=== PATIENT | female | born 1935 | race Hispanic/Latino ===

== ENCOUNTER → 2017-12-27 | Outpatient (CLI) | payer MEDICARE ==
[~2017-12-27] MED LIST: ASPI-1012 PO; DILT240C3 PO; FERR324T10 PO; HYDR-2132 PO; IRON1CAP32 PO; MIRAUD PO; PHEN64.8 PO; TRAM50TA4 PO; TRIA1CAP6 PO
== END | disposition home or self-care (01) ==
LOC: EDSTATUS 09:00 → SHCH 09:25
PROVIDERS: ATTEND Internal Medicine Cardiovascular Disease
DX: I35.1 Nonrheumatic aortic (valve) insufficiency (principal); I10 Essential (primary) hypertension
CPT/HCPCS: 93306

== ENCOUNTER 2018-01-05 15:30 | Inpatient (IN) | payer MEDICARE ==
[~2018-01-05] VITALS: Ht 160 cm; Wt 56.2 kg
[2018-01-05 16:10] VITALS: BP 129/65
[2018-01-05 16:27] LABS: BASOPHILS % (AUTO) 0.6 % (0.0-5.0); EOSINOPHILS % (AUTO) 2.2 % (0.0-8.0); HEMATOCRIT 32.5 % (36-48); LYMPHOCYTES % (AUTO) 15.1 % (21.0-51.0); MEAN CORPUSCULAR HEMOGLOBIN 26.4 pg (27.0-33.0); MEAN CORPUSCULAR HGB CONC 33.4 g/dL (32.0-36.0); MONOCYTES % (AUTO) 6.1 % (3.0-13.0); PLATELET COUNT (AUTO) 238 K/uL (130-400); RED BLOOD CELL COUNT(AUTO) 4.12 MIL/uL (4.00-5.50); RED CELL DISTRIBUTION WIDTH 17.6 % (11.0-15.5); WHITE BLOOD COUNT (AUTO) 4.7 K/uL (4.8-10.8)
[2018-01-05 16:32] LABS: BILIRUBIN,URINE Negative (NEGATIVE); COLOR,URINE Dark Yellow (YELLOW); GLUCOSE, URINE (UA) Negative (NEGATIVE); KETONES,URINE Negative (NEGATIVE); LEUKOCYTE ESTERASE ,URINE Small (NEGATIVE); NITRATE,URINE Positive (NEGATIVE); OCCULT BLOOD,URINE Negative (NEGATIVE); PH,URINE 6.5 (5.0-8.0); PROTEIN,URINE Negative (NEGATIVE)
[2018-01-05 16:33] LABS: CREATININE 1.1 mg/dL (0.5-1.5); POTASSIUM 4.6 mmol/L (3.5-5.1)
[2018-01-05 16:35] LABS: INR 1.02 (0.85-1.15); PARTIAL THROMBOPLASTIN TIME 27.5 SEC (26.3-35.5); PROTHROMBIN TIME 10.7 SEC (9.6-11.6)
[2018-01-05 16:36] LABS: APPEARANCE,URINE SLIGHTLY CLOUDY (CLEAR)
[2018-01-05 16:45] LABS: BACTERIA,URINE Moderate /HPF (None Seen); RBC,URINE 0-1 /HPF (0-1); YEAST,URINE BUDDING Rare /HPF (None Seen)
[2018-01-05 16:46] LABS: AMORPHOUS SEDIMENT,UR Rare /LPF (None Seen); COARSE GRANULAR CASTS,URINE 0-2 /LPF (None Seen); SQUAMOUS EPITHELIAL CELL,UR Rare /HPF (0-2)
[2018-01-05] MEDS ORDERED: PHEN64.8 PO (17:44)
[2018-01-05] MEDS ORDERED: TRIA1CAP6 PO (17:44)
[2018-01-05] MEDS ORDERED: IRON1CAP32 PO (17:44)
[2018-01-05] MEDS ORDERED: DILT240C3 PO (17:44)
[2018-01-08] VITALS (20 sets, daily range): BP systolic 109–140; BP diastolic 49–67
[2018-01-08] MEDS: CEFAZOLIN SODIUM 1 GM VIAL IVP SCH ×2 (06:00→16:30)
[2018-01-08] MEDS ORDERED: PROPOFOL 10 MG/ML 20ML VIAL IV ONE ×2 (12:59→16:17)
[2018-01-08] MEDS ORDERED: GLYCOPYRROLATE 0.2 MG/ML 5 ML VIAL ONE (12:59)
[2018-01-08] MEDS ORDERED: LIDOCAINE PF 2% 5ML ABBOJECT ONE (12:59)
[2018-01-08] MEDS ORDERED: DEXAMETHASONE SOD PHOSPHATE 10MG/ML 1ML VIAL ONE (12:59)
[2018-01-08] MEDS ORDERED: MIDAZOLAM HCL 1 MG/ML 2ML VIAL ONE (12:59)
[2018-01-08] MEDS ORDERED: FENTANYL CITRATE PF 50 MCG/1 ML 2ML VIAL ONE ×2 (13:00→20:15)
[2018-01-08] MEDS ORDERED: GENTAMICIN SULFATE 240 MG in SODIUM CHLORIDE 0.9% 100 ML IV SCH (13:30)
[2018-01-08] MEDS ORDERED: LACTATED RINGERS 1000ML 1,000 ML IV ONE (13:44)
[2018-01-08] MEDS ORDERED: BUPIVACAINE/EPI/PF 0.25% 30ML VIAL IJ ONE (13:52)
[2018-01-08] MEDS ORDERED: CEFAZOLIN SODIUM 1 GM VIAL ONE ×2 (13:52→18:32)
[2018-01-08] MEDS ORDERED: TRANEXAMIC ACID 1000MG/10ML IV ONE ×2 (13:52→20:58)
[2018-01-08] MEDS ORDERED: EPHEDRINE SULFATE 50 MG/ML AMPULE ONE (17:15)
[2018-01-08] MEDS ORDERED: VANCOMYCIN HCL 1 GM VIAL ONE (19:17)
[2018-01-08] MEDS ORDERED: TEMAZEPAM 15 MG CAPSULE PO PRN (20:15)
[2018-01-08] MEDS ORDERED: HYDROCODONE/ACETAMINOPHEN 5/325 MG TAB PO PRN ×2 (20:15)
[2018-01-08] MEDS ORDERED: POTASSIUM CHLORIDE 20 MEQ ERTAB PO PRN (20:15)
[2018-01-08] MEDS ORDERED: LIDOCAINE HCL-MPF 1% 2ML VIAL IVP PRN (20:15)
[2018-01-08] MEDS ORDERED: DiphenhydrAMINE HCL 50 MG/ML VIAL IVP PRN (20:15)
[2018-01-08] MEDS ORDERED: POTASSIUM CHLORIDE 10% ELIXIR 20 MEQ/15 ML UDCUP PO PRN (20:15)
[2018-01-08] MEDS ORDERED: CALCIUM CARBONATE 500 MG TABLET PO PRN (20:15)
[2018-01-08] MEDS ORDERED: PROMETHAZINE HCL 25 MG/ML 1ML AMPULE IM PRN (20:15)
[2018-01-08] MEDS ORDERED: POTASSIUM CHLORIDE 20MEQ/100ML 100 ML IV PRN (20:15)
[2018-01-08] MEDS ORDERED: DIPHENHYDRAMINE HCL 25 MG CAPSULE PO PRN (20:15)
[2018-01-08] MEDS ORDERED: ONDANSETRON HCL MDV 20ML 2 MG/ML VIAL ONE (21:12)
[2018-01-08] MEDS: SODIUM CHLORIDE 0.9% 1000ML 1,000 ML IV SCH (22:19)
[2018-01-08] MEDS: KETOROLAC TROMETHAMINE 15MG/ML IV PRN (23:25)
[2018-01-08] MEDS: FAMOTIDINE 20MG TAB 20 MG TAB PO SCH (23:27)
[2018-01-08] MEDS: CELECOXIB 200 MG CAP PO SCH (23:27)
[2018-01-08] MEDS: ASPIRIN 325 MG TABLET PO SCH (23:27)
[2018-01-09] VITALS (7 sets, daily range): BP systolic 92–139; BP diastolic 44–65
[2018-01-09] MEDS: CEFAZOLIN SODIUM 1 GM VIAL IVP SCH ×2 (00:36→09:15)
[2018-01-09] MEDS ORDERED: CEFAZOLIN 2GM / 50 ML 50 ML IV SCH (01:15)
[2018-01-09 05:27] LABS: HEMATOCRIT 28.1 % (36-48); MEAN CORPUSCULAR HEMOGLOBIN 26.8 pg (27.0-33.0); MEAN CORPUSCULAR HGB CONC 33.3 g/dL (32.0-36.0); MEAN CORPUSCULAR VOLUME 80.4 fL (79-99); PLATELET COUNT (AUTO) 212 K/uL (130-400); RED CELL DISTRIBUTION WIDTH 19.8 % (11.0-15.5); WHITE BLOOD COUNT (AUTO) 16.4 K/uL (4.8-10.8)
[2018-01-09 05:37] LABS: CREATININE 0.8 mg/dL (0.5-1.5); POTASSIUM 4.1 mmol/L (3.5-5.1)
[2018-01-09] MEDS: SODIUM CHLORIDE 0.9% 1000ML 1,000 ML IV SCH ×2 (06:26→16:13)
[2018-01-09] MEDS: CELECOXIB 200 MG CAP PO SCH ×2 (08:36→19:34)
[2018-01-09] MEDS: FAMOTIDINE 20MG TAB 20 MG TAB PO SCH ×2 (08:36→21:24)
[2018-01-09] MEDS: POLYETHYLENE GLYCOL 3350 17 GM POWD.PACK PO SCH (08:36)
[2018-01-09] MEDS: ASPIRIN 325 MG TABLET PO SCH ×2 (08:36→19:34)
[2018-01-09] MEDS: TRAMADOL HCL 50 MG TABLET PO PRN ×2 (08:36→17:37)
[2018-01-09] MEDS: PSYLLIUM SEED 1 EACH PACKET PO SCH (12:00)
[2018-01-09] MEDS ORDERED: PHARMACY COMMUNICATION MISC SCH (14:15)
[2018-01-09] MEDS ORDERED: COMPOUND IV REFRIGERATED 1 EACH IVSOLN MISC PRN (14:30)
[2018-01-09] MEDS ORDERED: GENTAMICIN SULFATE 240 MG in SODIUM CHLORIDE 0.9% 100 ML IV ONE (15:30)
[2018-01-09] MEDS: PHENOBARBITAL 64.8 MG PO SCH (19:35)
[2018-01-10 00:25] VITALS: BP 123/59
[2018-01-10 04:00] VITALS: BP 137/67
[2018-01-10 05:53] LABS: HEMATOCRIT 23.7 % (36-48); MEAN CORPUSCULAR HEMOGLOBIN 26.6 pg (27.0-33.0); MEAN CORPUSCULAR HGB CONC 32.6 g/dL (32.0-36.0); MEAN CORPUSCULAR VOLUME 81.7 fL (79-99); PLATELET COUNT (AUTO) 123 K/uL (130-400); RED BLOOD CELL COUNT(AUTO) 2.91 MIL/uL (4.00-5.50); RED CELL DISTRIBUTION WIDTH 19.6 % (11.0-15.5); WHITE BLOOD COUNT (AUTO) 6.6 K/uL (4.8-10.8)
[2018-01-10 06:02] LABS: CREATININE 0.6 mg/dL (0.5-1.5); POTASSIUM 4.3 mmol/L (3.5-5.1)
[2018-01-10] MEDS: KETOROLAC TROMETHAMINE 15MG/ML IV PRN ×2 (06:34→20:03)
[2018-01-10 08:00] VITALS: BP 147/69
[2018-01-10] MEDS: ASPIRIN 325 MG TABLET PO SCH ×2 (08:16→19:57)
[2018-01-10] MEDS: CELECOXIB 200 MG CAP PO SCH ×2 (08:17→19:57)
[2018-01-10] MEDS: POLYETHYLENE GLYCOL 3350 17 GM POWD.PACK PO SCH (08:17)
[2018-01-10] MEDS: PHENOBARBITAL 64.8 MG PO SCH ×2 (08:17→20:02)
[2018-01-10] MEDS: FAMOTIDINE 20MG TAB 20 MG TAB PO SCH ×2 (08:17→19:57)
[2018-01-10] MEDS: FERROUS FUMARATE 324 MG TABLET PO PRN (08:18)
[2018-01-10] MEDS: TRIAMTERENE/HYDROCHLOROTHIAZIDE 37.5/25 MG CAP PO SCH (08:20)
[2018-01-10] MEDS: DILTIAZEM HCL 120 MG CAP.SR.24H PO SCH (08:21)
[2018-01-10] MEDS: PSYLLIUM SEED 1 EACH PACKET PO SCH (12:42)
[2018-01-10 16:00] VITALS: BP 108/42
[2018-01-10 19:57] VITALS: BP 116/58
[2018-01-10] MEDS ORDERED: BISACODYL 5 MG TABLET.DR PO PRN (20:15)
[2018-01-10] MEDS: TRAMADOL HCL 50 MG TABLET PO PRN (21:18)
[2018-01-10 23:50] VITALS: BP 115/56
[2018-01-11 04:39] VITALS: BP 120/57
[2018-01-11 05:52] LABS: CREATININE 0.7 mg/dL (0.5-1.5); POTASSIUM 4.6 mmol/L (3.5-5.1)
[2018-01-11 05:55] LABS: HEMATOCRIT 21.7 % (36-48); MEAN CORPUSCULAR HEMOGLOBIN 26.4 pg (27.0-33.0); MEAN CORPUSCULAR HGB CONC 33.2 g/dL (32.0-36.0); MEAN CORPUSCULAR VOLUME 79.5 fL (79-99); PLATELET COUNT (AUTO) 142 K/uL (130-400); RED BLOOD CELL COUNT(AUTO) 2.73 MIL/uL (4.00-5.50); RED CELL DISTRIBUTION WIDTH 19.7 % (11.0-15.5); WHITE BLOOD COUNT (AUTO) 4.4 K/uL (4.8-10.8)
[2018-01-11] MEDS: CELECOXIB 200 MG CAP PO SCH (07:40)
[2018-01-11] MEDS: ASPIRIN 325 MG TABLET PO SCH (07:40)
[2018-01-11] MEDS: FERROUS FUMARATE 324 MG TABLET PO PRN (07:40)
[2018-01-11] MEDS: PHENOBARBITAL 64.8 MG PO SCH (07:41)
[2018-01-11] MEDS: FAMOTIDINE 20MG TAB 20 MG TAB PO SCH (07:41)
[2018-01-11] MEDS: DILTIAZEM HCL 120 MG CAP.SR.24H PO SCH (07:44)
[2018-01-11 08:06] VITALS: BP 111/61
[2018-01-11] MEDS ORDERED: HYDR-2132 PO (08:09)
[2018-01-11] MEDS ORDERED: TRAM50TA4 PO (08:09)
[2018-01-11] MEDS ORDERED: MIRAUD PO (08:09)
[2018-01-11] MEDS ORDERED: FERR324T10 PO (08:09)
[2018-01-11] MEDS ORDERED: ASPI-1012 PO (08:09)
[2018-01-11] MEDS: TRIAMTERENE/HYDROCHLOROTHIAZIDE 37.5/25 MG CAP PO SCH (08:30)
[2018-01-11] MEDS: POLYETHYLENE GLYCOL 3350 17 GM POWD.PACK PO SCH (08:30)
[2018-01-11] MEDS: TRAMADOL HCL 50 MG TABLET PO PRN (08:33)
[2018-01-11] MEDS ORDERED: SODIUM CHLORIDE 0.9% 250 ML IV ONE (08:54)
[2018-01-11 11:07] VITALS: BP 108/53
[2018-01-11] MEDS: PSYLLIUM SEED 1 EACH PACKET PO SCH (12:33)
[2018-01-11] MEDS ORDERED: BISACODYL 10 MG SUPP.RECT RC PRN (20:15)
== END 2018-01-11 18:56 | DRG 468 ==
LOC: EDSTATUS 15:30 → DAHIP 01-08 12:54 → 4AH 01-08 23:49
PROVIDERS: ADMIT Orthopaedic Surgery; ATTEND Orthopaedic Surgery
PROC: 0SWD0JZ Revision of Synthetic Substitute in Left Knee Joint, Open Approach (ICD-10-PCS; principal; 2018-01-08 16:11)
PROC: 30233N1 Transfusion of Nonautologous Red Blood Cells into Peripheral Vein, Percutaneous Approach (ICD-10-PCS; 2018-01-08 16:11)
DX: T84.84XA Pain due to internal orthopedic prosthetic devices, implants and grafts, initial encounter (principal); M97.12XA Periprosthetic fracture around internal prosthetic left knee joint, initial encounter; I10 Essential (primary) hypertension
CPT/HCPCS: 36415; 76000; 80048; 81001; 85025; 85027; 85610; 85730; 86850; 86900; 86901; 86922; 87070; 87076; 87205; 88305; 88311; 97039; A4218; C1713; C1776; J0690; J1100; J1580; J1885; J2001; J2250; J2704; J3010; J3370; J3490; J7030; J7120; P9016